=== PATIENT | male | born 1970 ===

== ENCOUNTER 2017-03-17 08:35 | Emergency (ER) | payer BC ==
[2017-03-17 08:41] VITALS: BP 107/71
--- NOTE | 2017-03-17 08:46 | UC ---
Skin Complaint HPI - History of Current Complaint Hx Obtained From: Patient Onset/Duration: Sudden Onset - was moving and got bit by mosquitos. today has itchy bug bites on shoulders and abd has tried no treatment Aggravating: Touch Alleviating: Nothing Associated Signs & Symptoms: Positive: Rash - bites, itch Related History: Insect Bite/Sting <Justina Andrews - Last Filed: 03/17/17 09:01> <Maru Alves - Last Filed: 03/17/17 09:15> - History of Current Complaint Time Seen by Provider: 03/17/17 08:39 Stated Complaint: RASH - Allergy/Home Medications Allergies/Adverse Reactions: Allergies Allergy/AdvReac Type Severity Reaction Status Date / Time No Known Allergies Allergy Verified 03/17/17 08:37 Home Medications: Home Medications NK [No Home Medications Reported] 03/17/17 [History Confirmed 03/17/17] Review of Systems Constitutional: Negative Skin: Rash Respiratory: Negative Cardiovascular: Negative Neurological: Negative Psychological: Negative All Other Systems Reviewed And Are Negative: Yes <Justina Andrews - Last Filed: 03/17/17 09:01> PMH/Surg Hx/FS Hx/Imm Hx Previously Healthy: Yes - Family History Known Family History: Positive: None - Social History Occupation: Employed Full-time Lives: With Family Alcohol Use: None Substance Use Type: None <Justina Andrews - Last Filed: 03/17/17 09:01> Physical Exam Triage Information Reviewed: Yes Appearance: Well-Appearing, No Pain Distress, Well-Nourished Vital Signs Reviewed: Yes Respiratory Exam: Normal Cardiovascular Exam: Normal Psychological Exam: Normal Skin: Positive: Other - 6-8 single erythemic, raised, pruritic lesions spread over shoulders, arms and abd. no evidence bacterial infection <Justina Andrews - Last Filed: 03/17/17 09:01> Vital Signs: Initial Vital Signs Temp 97.6 F 03/17/17 08:37 Pulse 63 03/17/17 08:37 Resp 16 03/17/17 08:37 BP 107/71 03/17/17 08:37 Pulse Ox 100 03/17/17 08:37 <Maru Alves - Last Filed: 03/17/17 09:15> Course/Dx - Differential Diagnoses - Skin Complaint Differential Diagnoses: Cellulitis, Poison Bailey, Other - insect bites - Diagnoses Provider Diagnoses: insect bites <Justina Andrews - Last Filed: 03/17/17 09:01> Discharge <Justina Andrews - Last Filed: 03/17/17 09:01> <Maru Alves - Last Filed: 03/17/17 09:15> - Discharge Plan Condition: Good Disposition: HOME Patient Education Materials: Insect Bite or Sting (ED) Referrals: No Primary Care Phys,NOPCP [Medical Doctor] - Additional Instructions: apply Blue Emu cream with lidocaine to bites as directed may also use benadryl gel to bites as directed return if bites become painful or start to look infected Attestation Statement User Type: Provider - I was available for consult. This patient was seen by the BAUTISTA. The patient was not presented to, seen by, or examined by me. -Morris <Maru Alves - Last Filed: 03/17/17 09:15> Addendum entered and electronically signed by Justina Andrews NP 03/17/17 09: 01:
== END 2017-03-17 09:04 | disposition home or self-care (01) ==
LOC: UCEAST 08:35
DX: S40.262A Insect bite (nonvenomous) of left shoulder, initial encounter (principal); S40.261A Insect bite (nonvenomous) of right shoulder, initial encounter; S30.861A Insect bite (nonvenomous) of abdominal wall, initial encounter; W57.XXXA Bitten or stung by nonvenomous insect and other nonvenomous arthropods, initial encounter; Y93.E6 Activity, residential relocation; Y92.9 Unspecified place or not applicable
CPT/HCPCS: 99201; G0463

== ENCOUNTER 2017-10-01 20:14 | Emergency (ER) | payer BC ==
[2017-10-01 21:01] VITALS: BP 000/00
== END 2017-10-01 21:00 | disposition left against medical advice (07) ==
LOC: ED 20:14
DX: R50.9 Fever, unspecified (principal); Z53.21 Procedure and treatment not carried out due to patient leaving prior to being seen by health care provider

== ENCOUNTER 2019-02-23 08:37 | Emergency (ER) | payer BC ==
[2019-02-23 08:44] VITALS: BP 115/77
--- NOTE | 2019-02-23 09:03 | UC ---
HPI Febrile Illness - HPI Summary HPI Summary: Pt is 48 y/o male with hx seasonal allergies with fever x 4 days, T max 102 F. Also notes chills, fatigue, myalgias, nasal congestion, productive cough with green sputum, and intermittent sharp frontal headache. States he has been taking 400 mg ibuprofen/day to control the fever. Began taking mucinex this morning but denies relief. Denies tobacco use. No other complaints at this time. - History of Current Complaint Chief Complaint: UCRespiratory Time Seen by Provider: 02/23/19 08:43 Hx Obtained From: Patient Onset/Duration: Started Days Ago Timing: Constant Temperature: 102 F Initial Severity: Moderate Current Severity: Moderate Pain Intensity: 0 Pain Scale Used: 0-10 Numeric Aggravating Factors: Nothing Alleviating Factors: OTC Medicine Associated Signs and Symptoms: Chills, Cough, Headache - intermittent, Myalgia, Nausea - Allergy/Home Medications Allergies/Adverse Reactions: Allergies Allergy/AdvReac Type Severity Reaction Status Date / Time No Known Allergies Allergy Verified 02/23/19 08:44 Home Medications: Home Medications Guaifenesin/Pseudo 600/60(NF) [Mucinex D 600/60 (NF)] 2 tab PO Q12H 02/23/19 [ History Confirmed 02/23/19] Ibuprofen 400 mg PO 02/23/19 [History] PMH/Surg Hx/FS Hx/Imm Hx Previously Healthy: Yes - Surgical History Surgical History: Yes Surgery Procedure, Year, and Place: facial reconstruction - Family History Known Family History: Positive: Non-Contributory - Social History Occupation: Employed Full-time Alcohol Use: Occasionally Substance Use Type: None Smoking Status (MU): Never Smoked Tobacco Review of Systems All Other Systems Reviewed And Are Negative: Yes Constitutional: Positive: Fever, Fatigue ENT: Positive: Sinus Congestion. Negative: Sore Throat, Ear Ache, Nasal Discharge Respiratory: Positive: Cough Gastrointestinal: Positive: Nausea Motor: Positive: Negative Neurovascular: Positive: Negative Musculoskeletal: Positive: Myalgia Neurological: Positive: Headache Physical Exam Triage Information Reviewed: Yes Appearance: Well-Appearing, No Pain Distress Vital Signs: Initial Vital Signs Temp 96.9 F 02/23/19 08:39 Pulse 82 02/23/19 08:39 Resp 18 02/23/19 08:39 BP 115/77 02/23/19 08:39 Pulse Ox 96 02/23/19 08:39 Vital Signs Reviewed: Yes Eye Exam: Normal Eyes: Positive: Conjunctiva Clear ENT: Positive: Pharynx normal, Nasal congestion, TMs normal. Negative: Pharyngeal erythema, Nasal drainage, TM bulging, Tonsillar swelling, Tonsillar exudate, Sinus tenderness Neck exam: Normal Neck: Positive: Supple, Nontender Respiratory: Positive: No accessory muscle use, Crackles - Right base. Negative : Respiratory distress, Wheezing Cardiovascular: Positive: RRR, No Murmur Abdomen Description: Positive: Nontender, Soft. Negative: Distended Musculoskeletal Exam: Normal Musculoskeletal: Positive: Strength Intact, ROM Intact Neurological Exam: Normal Neurological: Positive: Alert Psychological Exam: Normal Skin Exam: Normal Diagnostics - Radiology CXR Radiology Interpretation Completed By: Radiologist Summary of Radiographic Findings: No acute pulmonary disease. 1.4 cm pulmonary nodule left lung, minimally changed from 2009 Course/Dx - Course Course Of Treatment: 48 y/o male with fever and cough x 4 days, CXR showed 1.4 cm pulmonary nodule, minimally changed from 2008, no acute cardiopulmonary disease. Pt discharged with inhaler and steroid for symptomatic relief. Pt to f/u with PCP Patient was seen in collaboration with the physician home care assistant student. All history, physical exam and medical decision making presented are mine. - Febrile Illness Differential Diagnoses: Other: - pneumonia, URI, bronchitis - Diagnoses Provider Diagnosis: URI (upper respiratory infection) Discharge - Sign-Out/Discharge Documenting (check all that apply): Patient Departure All imaging exams completed and their final reports reviewed: Yes - Discharge Plan Condition: Improved Disposition: HOME Prescriptions: Albuterol inh POWDER (NF) [Proair Respiclick] 2 puff INH Q4H PRN #1 mdi PRN Reason: Sob/Wheezing Benzonatate CAP* [Tessalon 100 MG CAP*] 100 mg PO TID PRN #21 cap PRN Reason: Cough predniSONE TAB* [Deltasone TAB*] 50 mg PO DAILY #5 tab Patient Education Materials: Upper Respiratory Infection (ED) Referrals: Paul Pillai MD [Primary Care Provider] - Additional Instructions: Stay well hydrated. Tylenol/ibuprofen for fever or headache. Humidifier while sleeping. Return with difficulty breathing, high fevers, worse, new symptoms or other concerns. Follow up with your doctor with a call in the morning. - Billing Disposition and Condition Condition: IMPROVED Disposition: Home - Attestation Statements Document Initiated by Deanibyasmin: Yes Documenting Scribe: SINA Ansari Provider For Whom Ct is Documenting (Include Credential): Dr. Foote Scribyasmin Attestation: Oscar Smalls PA-S, scribed for Dr. Foote on 02/23/19 at 1137. Scribe Documentation Reviewed: Yes Provider Attestation: The documentation as recorded by the ct, SINA Ansari accurately reflects the service I personally performed and the decisions made by Dr. Dary perez Status of Scribe Document: Viewed
== END 2019-02-23 09:40 | disposition home or self-care (01) ==
LOC: UCEAST 08:37
DX: J06.9 Acute upper respiratory infection, unspecified (principal)
CPT/HCPCS: 71046; 99212; G0463